=== PATIENT | female | born 1985 | race Caucasian/White ===

== ENCOUNTER 2018-02-05 09:30 | Outpatient (RCR) | payer MEDICAID, SELFPAY ==
--- NOTE | 2018-01-28 11:56 | HP.PTEVAL_ITS ---
Patient's Visit Information BAYRON MARK is a 32 year old F referred to Physical Therapy by No Primary Care Phys with a diagnosis of vertigo. Date of Evaluation: 01/28/18 Physical Therapist: Trip Espitia DPT, [place] - Visit Plan Frequency: 1x/Week Duration: 2-4 Weeks Plan: weekly x 2-4 for positional treatments and monitor need for further vestibular. - Subjective Subjective: Vertigo. Started severe over a year ago possibly with sinus infection. Turning head left when lying back gets lightheaded adn off balance with some slight spinning for 30 seconds. Feels normal in betweens episodes. Is daily but minimal and tolerable with bending down or lying in bed and turning L. Started last April and has been on and off since. Saw neurologist Dr. Gonzalez a couple months ago. Sleep is OK now but has interrupted in past. 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 - Objective Walks and transfers well. c/s AROM is WNL and painfree. - R hallpike. + L hallpike for up torsional quick 4 second nystagmus and dizzyness. Treated with L Jasbir adn then - HD test. - Balance Scores Functional Gait Assessment Score: 30 % Disability: 0 - Goals Goal 1:: abolish vertigo rolling in bed to sleep better Goal Time Frame: 2-4 Weeks Goal 2:: Pt report 100% abolishment of her symptoms to bend over safer and without hesitation Goal Time Frame: 4-6 Weeks - Rehabilitation Potential Physical Therapy Diagnosis: vertigo BPPV - Anticipated Interventions Patient/Client Instruction: Educate patient on: Condition, Plan of Care For the Purpose of:: To increase tolerance to activity/condition/position Comment: positional treatments adn vestibular therapy For the Purpose of:: To increase tolerance to activity/condition/position Thank you for the opportunity to evaluate your patient. For Medicare and Medicare HMO plans, please review the plan of care and approve it. It will need to be FAXED BACK to us at [phone] for Medicare purposes. Please let me know if there are questions or concerns regarding this plan of care. Physician Signature: Date:
--- NOTE | 2018-04-16 14:45 | HP.PT.NRP ---
HP - Discharge Summary (1) - Patient Information BAYRON MARK was seen in my office for initial evaluation on 01/28/18. The following Plan of Care was established for this patient: Initial Frequency: 1x/Week Initial Duration: 2-4 Weeks - Anticipated Interventions Patient/Client Instruction: Educate patient on: Condition, Plan of Care For the Purpose of:: To increase tolerance to activity/condition/position For the Purpose of:: To increase tolerance to activity/condition/position This patient was last seen in our office 02/05/18. Pertinent comments regarding their Physical therapy will appear below: Pt seen 2 visits and was 99% better. Pt was to f/u one time to ensure consistency but no showed for that appointment. It has been over two months and I will discontinue due to nonattendance. At this point I will be discontinuing this patient from physical therapy. I would be happy to see this patient again in the future if found appropriate by the physician. Thank you! Trip Espitia, DPT, OCS, CSCS
== END 2018-02-05 19:00 | disposition home or self-care (01) ==
LOC: PT 09:30
PROVIDERS: Family Provider Family Medicine; PCP Family Medicine; Referring Provider Nurse Practitioner Acute Care; Visit Provider Nurse Practitioner Acute Care
DX: R42 Dizziness and giddiness (principal)
CPT/HCPCS: 97161; 97530